=== PATIENT | female | born 1965 | race African-American/Black ===

== ENCOUNTER 2017-03-24 20:30 | Emergency (ER) | payer MEDICAID ==
[2017-03-24] MEDS ORDERED: ASPIRIN 81 MG TABLET, CHEWABLE PO ONE (20:47)
[2017-03-24] MEDS ORDERED: DIGOXIN INJ 0.5 MG/2 ML AMPULE IV ONE (21:13)
--- NOTE | 2017-03-24 21:20 | ER Document Report ---
ED General - General Stated Complaint: CHEST PAIN Time Seen by Provider: 03/24/17 21:12 Notes: Patient is a 51-year-old female with past medical history of morbid obesity, anemia, a history of sinus tachycardia requiring regular digoxin use who presents with palpitations, chest pain and a feeling of her heart racing. Patient states that she ran out of her digoxin 0.5 mg daily 1 week ago. She has had similar symptoms in the past prior to be placed those medications or when she has forgotten to take this medication in the past. She recently moved to the area and this is the reason that she has not had this medication refilled. She does describe the discomfort in her chest is a dull, aching pain. Nothing improves or worsens her symptoms. She denies any associated nausea, vomiting or shortness of breath. - Related Data Allergies/Adverse Reactions: iodine Allergy (Verified 03/24/17 22:38) Past Medical History - General Information source: Patient - Social History Smoking Status: Never Smoker Frequency of alcohol use: None Drug Abuse: None Lives with: Family Family History: Reviewed & Not Pertinent Review of Systems - Review of Systems Notes: Constitutional: Negative for fever. HENT: Negative for sore throat. Eyes: Negative for visual changes. Cardiovascular: Positive for palpitations and chest pain Respiratory: Negative for shortness of breath. Gastrointestinal: Negative for abdominal pain, vomiting or diarrhea. Genitourinary: Negative for dysuria. Musculoskeletal: Negative for back pain. Skin: Negative for rash. Neurological: Negative for headaches, weakness or numbness. 10 point ROS negative except as marked above and in HPI. Physical Exam - Vital signs Vitals: Temp 98.5 F 03/24/17 20:47 Interpretation: Normal Notes: PHYSICAL EXAMINATION: GENERAL: Morbidly obese female. Well-appearing, well-nourished and in no acute distress. HEAD: Atraumatic, normocephalic. EYES: Pupils equal round and reactive to light, extraocular movements intact, sclera anicteric, conjunctiva are normal. ENT: nares patent, oropharynx clear without exudates. Moist mucous membranes. NECK: Normal range of motion, supple without lymphadenopathy LUNGS: Breath sounds clear to auscultation bilaterally and equal. No wheezes rales or rhonchi. HEART: regular tachycardia without murmurs ABDOMEN: Obese abdomen. Soft, nontender, normoactive bowel sounds. No guarding , no rebound. No masses appreciated. EXTREMITIES: Normal range of motion, no pitting or edema. No cyanosis. NEUROLOGICAL: No focal neurological deficits. Moves all extremities spontaneously and on command. PSYCH: Normal mood, normal affect. SKIN: Warm, Dry, normal turgor, no rashes or lesions noted. Course - Re-evaluation Re-evalutation: 03/24/17 21:19 Patient presents with palpitations, severe tachycardia initial heart rate 169, but nontoxic in appearance. She does have a long-standing history of elevated sinus tachycardia at baseline and is normally on digoxin 0.5 mg several times daily but has been out of this medication for the past 1 week. She recently moved to the area and has not established primary care yet. Patient states she has had similar presentations in the past when she has discontinued digoxin. In regards the patient's chest pain: She states it is more of a intermittent fluttering in her chest as opposed to a heavy pressure in her chest and she denies any radiation of the pain. She does not have any history of DVT or pulmonary embolus and denies any shortness of breath or pleuritic pain to suggest this diagnosis. Will proceed with a cardiac workup, provide IV digoxin and reassess 03/25/17 01:26 Patient's heart rate has now completely normalized, she has remained without any further pain. However due to patient's morbid obesity and inability to access her port, multiple attempts at obtaining labs have hemolyzed. Patient has refused any further blood draws. I have informed her that we cannot exclude ACS as the etiology of her initial presentation today given the absence of being able to obtain a troponin. I have encouraged her to remain for repeat blood draws that we can obtain this laboratory and she has declined stating she refuses any additional blood draws. She is willing to receive discharge paperwork and a prescription for her digoxin of which she has ran out. The patient has chosen to leave the facility against medical advice. The relevant issues have been reviewed and discussed with the patient and family at the bedside. At the time of this assessment there is no indication for involuntary commitment. The patient is alert, oriented, and able to express clearly their reasoning for not wanting to remain in the emergency department for further treatment. The patient is not clinically psychotic, intoxicated, and denies and suicidal ideation. Differential or suspected diagnoses based on medical screening exam: Tachycardia, possible ACS. The patient is aware of the concerning diagnoses and acknowledges understanding of the reasons for the following recommendations: Blood draws, eval The following recommendations/services were offered and refused: see above The following risks were explained: , permanent disability, loss of function, ACS Clinical impression: Patient is competent to make decisions regarding the medical that is being offered. - Vital Signs Vital signs: Temp Pulse Resp BP Pulse Ox 98.5 F 22 H 111/90 H 99 03/24/17 20:47 03/25/17 01:00 03/24/17 21:19 03/25/17 01:00 - Laboratory Result Diagrams: 03/24/17 22:55 03/24/17 23:30 Laboratory results interpreted by me: 03/24/17 22:55 RBC 5.40 H MCV 78 L MCH 24.5 L MCHC 31.2 L RDW 15.3 H - Diagnostic Test Radiology reviewed: Image reviewed, Reports reviewed Radiology results interpreted by me: 03/25/17 01:28 CXR: No acute findings. - EKG Interpretation by Me Additional EKG results interpreted by me: 03/25/17 01:28 EKG 1: Sinus tachycardia, rate 160. No ST elevations or depressions. Prolonged QTc at 516. EKG 2: NSR. Rate 80. No ST elevations or depressions. QTC is 457. Discharge - Discharge Clinical Impression: Sinus tachycardia Chest pain Qualifiers: Chest pain type: unspecified Qualified Code(s): R07.9 - Chest pain, unspecified Condition: Stable Disposition: AGAINST MEDICAL ADVICE Additional Instructions: Please take the digoxin as it has been prescribed. Please be sure to follow-up with a primary care doctor. You have elected to leave without us being able to get a complete set of laboratories and I therefore cannot tell you for sure that your episode of chest pain today was not a form of a heart attack. Please return to the emergency department at any time if you would like to complete this evaluation. Prescriptions: Digoxin [Lanoxin 0.25 mg Tablet] 0.25 mg PO DAILY #30 tablet
[2017-03-24] MEDS ORDERED: LORAZEPAM 1 MG TABLET PO ONE (21:42)
[2017-03-24] MEDS ORDERED: DIGOXIN 0.25 MG TABLET PO ONE (21:42)
--- NOTE | 2017-03-24 22:24 | RADIOLOGY REPORT (SQ) ---
EXAM DESCRIPTION: CHEST SINGLE VIEW COMPLETED DATE/TIME: 03/24/2017 10:04 pm REASON FOR STUDY: chest pain, sob COMPARISON: None. EXAM PARAMETERS: NUMBER OF VIEWS: One view. TECHNIQUE: Single frontal radiographic view of the chest acquired. RADIATION DOSE: NA LIMITATIONS: None. FINDINGS: LUNGS AND PLEURA: No opacities, masses or pneumothorax. No pleural effusion. MEDIASTINUM AND HILAR STRUCTURES: No masses. Contour normal. HEART AND VASCULAR STRUCTURES: Heart normal in size. Normal vasculature. BONES: No acute findings. HARDWARE: A right anterior chest wall cardiac pacer is present without evidence of gross complication . A left anterior chest wall Port-A-Cath is seen, terminating in the region of the superior vena cav a. OTHER: No other significant finding. IMPRESSION: NO ACUTE RADIOGRAPHIC FINDING IN THE CHEST. TECHNICAL DOCUMENTATION: JOB ID: [id number]
[2017-03-24 23:02] LABS: ABSOLUTE EOSINOPHILS # (AUTO) 0.1 10^3/uL (0.0-0.6); ABSOLUTE MONOCYTES (AUTO) 0.7 10^3/uL (0.1-1.4); BASOPHILS % (AUTO) 0.6 % (0-2); EOSINOPHILS % (AUTO) 1.4 % (0-6); HEMATOCRIT 42.3 % (36.0-47.0); HEMOGLOBIN 13.2 g/dL (12.0-15.5); HGB HCT DIFFERENCE -2.7; LYMPHOCYTES % (AUTO) 43.5 % (13-45); MEAN CORPUSCULAR HEMOGLOBIN 24.5 pg (27.0-33.4); MEAN CORPUSCULAR HGB CONC 31.2 g/dL (32.0-36.0); MEAN CORPUSCULAR VOLUME 78 fl (80-97); MONOCYTES % (AUTO) 10.2 % (3-13); RED CELL DISTRIBUTION WIDTH 15.3 % (11.5-14.0); SEGMENTED NEUTROPHILS % (AUTO) 44.3 % (42-78); WHITE BLOOD COUNT 6.8 10^3/uL (4.0-10.5)
[2017-03-24 23:09] VITALS: BP 111/90
--- NOTE | 2017-03-25 13:40 | EKG REPORT ---
SEVERITY:- ABNORMAL ECG - SINUS RHYTHM LEFT VENTRICULAR HYPERTROPHY BORDERLINE T ABNORMALITIES, INFERIOR LEADS : Confirmed by: Allyssa Sanabria MD 25-Mar-2017 13:40:19
--- NOTE | 2017-03-25 13:40 | EKG REPORT ---
SEVERITY:- ABNORMAL ECG - SINUS TACHYCARDIA BORDERLINE LEFT AXIS DEVIATION ABNORMAL T, CONSIDER ISCHEMIA, LATERAL LEADS PROLONGED QT INTERVAL : Confirmed by: Allyssa Sanabria MD 25-Mar-2017 13:40:23
== END 2017-03-25 01:48 | disposition left against medical advice (07) ==
LOC: EDBD → ER 20:30
DX: R00.0 Tachycardia, unspecified (principal); T46.0X6A Underdosing of cardiac-stimulant glycosides and drugs of similar action, initial encounter; Z91.128 Patient's intentional underdosing of medication regimen for other reason; Z91.14 Patient's other noncompliance with medication regimen; R07.9 Chest pain, unspecified; R00.2 Palpitations; E66.01 Morbid (severe) obesity due to excess calories
CPT/HCPCS: 93005; 99285; 36415; 85025; 71010; 93010; J3490; 80053; 82550; 82553; 84484